=== PATIENT | female | born 1955 | race Caucasian/White ===

== ENCOUNTER 2020-07-15 09:52 | Outpatient (CLI) | payer OTHER ==
--- NOTE | 2020-07-15 10:43 | CT ---
CT abdomen and pelvis noncontrast HISTORY: Abdomen and back pain. FINDINGS: Each renal collecting system, ureter, and urinary bladder are decompressed. A 0.5 cm calcul us is present within a nondilated calyx at the inferior pole of the left kidney. There are tiny calcifications (0.1-0.2 cm) within nondilated calyces of each kidney. Lung bases are clear. Lack of IV contrast limits evaluation of the soft tissues. Oral contrast was ad ministered. No evidence of bowel obstruction or inflammation. IMPRESSION : Nonobstructing bilateral renal calculi, measuring up to 0.5 cm the inferior pole left kidney.
== END 2020-07-15 09:53 | disposition home or self-care (01) ==
LOC: NAV CT 09:52
PROVIDERS: ATTEND Family Medicine
DX: R10.84 Generalized abdominal pain (principal); N20.0 Calculus of kidney
CPT/HCPCS: 74176

== ENCOUNTER 2022-05-11 14:00 | Outpatient (CLI) | payer MEDICARE | END 2022-05-11 14:01 | disposition home or self-care (01) | LOC: NAV RAD 14:00 | PROVIDERS: ATTEND Family Medicine | DX: M25.561 Pain in right knee (principal); M25.562 Pain in left knee ==

== ENCOUNTER 2022-12-05 15:08 | Outpatient (CLI) | payer MEDICARE | END 2022-12-05 15:09 | disposition home or self-care (01) | LOC: NAV RAD 15:08 | PROVIDERS: ATTEND Nurse Practitioner Family | DX: M54.50 Low back pain, unspecified (principal); K59.00 Constipation, unspecified; M61.9 Calcification and ossification of muscle, unspecified | CPT/HCPCS: 74018 ==

== ENCOUNTER → 2024-10-07 | Outpatient (CLI) | payer MEDICARE | LOC: NAV RAD 10:43 | PROVIDERS: ATTEND Student in an Organized Health Care Education/Training Program | DX: M17.0 Bilateral primary osteoarthritis of knee (principal) | CPT/HCPCS: 73565 ==